=== PATIENT | female | born 1980 | race Caucasian/White ===

== ENCOUNTER 2018-09-08 18:51 | Emergency (ER) | payer OTHER ==
[2018-09-08 19:11] VITALS: TEMP 98.3
[2018-09-08] MEDS ORDERED: IBUPROFEN 600 MG TAB PO STA (19:19)
--- NOTE | 2018-09-08 20:05 | XR ---
PROCEDURE: XR ankle complete RT - 3V DATE AND TIME: 09/08/2018 7:39 PM CLINICAL INDICATION: PHH; Pain TECHNIQUE: Department protocol COMPARISON: None FINDINGS: There is no fracture or malalignment. The soft tissues are unremarkable. IMPRESSION: NO ACUTE PROCESS.
--- NOTE | 2018-09-08 20:07 | XR ---
PROCEDURE: XR foot complete RT - 3V DATE AND TIME: 09/08/2018 7:39 PM CLINICAL INDICATION: PHH; Pain after injury TECHNIQUE: Department protocol COMPARISON: None FINDINGS: There is indistinctness suggesting fracture involving the base of the fourth metatarsal. Th is subtle finding is seen on only the AP view. No other candidate for fracture. No malalignment. IMPRESSION: Suspect 4th metatarsal base fracture.
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
[2018-09-08 21:16] VITALS: BP 145/92; PULSE 78; RESP 18
== END 2018-09-08 21:16 | disposition home or self-care (01) ==
LOC: EC 18:51
DX: S92.341A Displaced fracture of fourth metatarsal bone, right foot, initial encounter for closed fracture (principal); F20.9 Schizophrenia, unspecified; F31.9 Bipolar disorder, unspecified; F17.200 Nicotine dependence, unspecified, uncomplicated; Z79.899 Other long term (current) drug therapy; W23.1XXA Caught, crushed, jammed, or pinched between stationary objects, initial encounter; Y93.89 Activity, other specified
CPT/HCPCS: 29505; 99283